=== PATIENT | female | born 1980 | race Caucasian/White ===

== ENCOUNTER → 2018-08-01 21:38 | Outpatient (CLI) | payer OTHER, SELFPAY ==
[2018-08-01 21:59] LABS: Absolute Lymphocyte Count 1.71 X10^3/ul (0.83-4.51); Absolute Neutrophil Count 4.4 X10^3/uL (2.0-7.7); Basophil# 0.04 X10^3/uL; Basophil% 0.6 % (0-1); Eosinophil# 0.23 X10^3/uL; Eosinophils% 3.3 % (0-5); Hematocrit 39.4 % (37-47); Hemoglobin 13.9 g/dl (12.0-15.0); Lymphocyte # 1.71 X10^3/ul (4.0); Lymphocyte % 24.7 % (19-41); Mean Corp Hgb Conc 35.3 g/gl (32-36); Mean Corpuscular Hgb 30.4 pg (27.0-32.0); Mean Corpuscular Volume 86.2 fL (81-99); Mean Platelet Vol. 11.8 fl (6.2-12.0); Monocyte# 0.51 X10^3/uL; Monocyte% 7.4 % (0-10); Neutrophil # 4.42 X10^3/uL (2.7-7.7); Neutrophil % 63.9 % (47-70); POSITIVE COUNT NO; POSITIVE DIFFERENTIAL NO; POSITIVE MORPHOLOGY NO; Platelet Count 191 K/mm3 (150-450); RBC Distribution Width CV 12.4 % (11.6-14.6); Red Blood Count 4.57 M/mm3 (4.2-5.4); White Blood Count 6.9 K/mm3 (4.4-11.0)
[2018-08-01 22:18] LABS: ALB/GLOB Ratio 0.9 RATIO (0.9-2.4); AST(SGOT) 20 U/L (15-37); Alanine Aminotransfer ALT/SGPT 42 U/L (13-56); Albumin, Serum 3.7 g/dL (3.2-5.0); Alkaline Phosphatase 86 U/L (45-117); Anion Gap 8 (5-15); BUN 7 mg/dL (7-18); BUN/Creat Ratio 10.1 RATIO (10-20); Calcium,Total 8.6 mg/dL (8.5-10.1); Chloride 107 mmol/L (98-107); Creatinine, Serum 0.69 mg/dL (0.55-1.02); EST Glomerular Filtration Rate 101 mL/min (>60); Est Glom Filt Rate - Afr Amer 122 mL/min (>60); Free T3 3.1 pg/mL (2.18-3.98); Globulin 3.9 g/dL (2.2-4.2); Glucose 86 mg/dL (74-106); Potassium 3.6 mmol/L (3.5-5.1); Protein, Total 7.6 g/dL (6.4-8.2); Sodium Level 140 mmol/L (136-145); T4 Free Direct 1.57 ng/dL (0.76-1.46); Thyroid Stim Hormone (TSH) 0.02 uIU/mL (0.358-3.74)
[2018-08-01 22:25] LABS: Pregnancy, Serum, hCG Quali. NEGATIVE Negative (0-9 Nonpreg)
[2018-08-02 08:36] LABS: T3 Total - Triiodothyronine 1.16 ng/mL (0.6-1.81)
== END ==
PROVIDERS: Visit Provider Nurse Practitioner
DX: F41.9 Anxiety disorder, unspecified (principal); G47.00 Insomnia, unspecified; E03.9 Hypothyroidism, unspecified
CPT/HCPCS: 80053; 84439; 84443; 84480; 84481; 84703; 85025

== ENCOUNTER → 2018-09-23 15:09 | Outpatient (CLI) | payer SELFPAY ==
[2018-09-23 15:43] LABS: Thyroid Stim Hormone (TSH) 0.51 uIU/mL (0.358-3.74)
[2018-09-26 10:51] LABS: Thyroid Peroxidase AB 10 IU/mL (0-34)
== END ==
PROVIDERS: Referring Provider Nurse Practitioner; Visit Provider Nurse Practitioner
DX: E01.0 Iodine-deficiency related diffuse (endemic) goiter (principal); E03.9 Hypothyroidism, unspecified
CPT/HCPCS: 84443; 86376